=== PATIENT | female | born 1985 ===

== ENCOUNTER 2020-11-26 22:03 | Emergency (ER) | payer OTHER ==
[~2020-11-26] VITALS: Ht 162.6 cm; Wt 51.7 kg
[2020-11-26] MEDS ORDERED: LEVOTHYROXINE25 MCG (22:28)
[2020-11-26] MEDS ORDERED: PROAIR HFA8.5 GM (22:29)
[2020-11-26] MEDS ORDERED: ALL DAY ALLERGY10 M3 (22:29)
[2020-11-26] MEDS ORDERED: MONTELUKAST SODI4 M1 (22:29)
[2020-11-27] MEDS ORDERED: ZOFRAN8 MG PO (09:14)
== END 2020-11-27 10:01 | disposition home or self-care (01) ==
LOC: ER 22:03
DX: R11.10 Vomiting, unspecified (principal); Z33.1 Pregnant state, incidental; Z03.818 Encounter for observation for suspected exposure to other biological agents ruled out

== ENCOUNTER 2020-12-03 13:48 | Emergency (ER) | payer OTHER ==
[~2020-12-03] VITALS: Ht 162.6 cm; Wt 52.2 kg
[~2020-12-03 13:48] MED LIST: ALL DAY ALLERGY10 M3; LEVOTHYROXINE25 MCG; MONTELUKAST SODI4 M1; PROAIR HFA8.5 GM; ZOFRAN8 MG PO
== END 2020-12-04 10:12 | disposition home or self-care (01) ==
LOC: ER 13:48
DX: O26.891 Other specified pregnancy related conditions, first trimester (principal); O21.0 Mild hyperemesis gravidarum; Z3A.12 12 weeks gestation of pregnancy; R10.2 Pelvic and perineal pain

== ENCOUNTER 2020-12-05 10:44 | Outpatient (CLI) | payer OTHER | END 2020-12-05 11:30 | disposition home or self-care (01) | LOC: PRENATAL 10:44 | PROVIDERS: ATTEND Obstetrics & Gynecology Maternal & Fetal Medicine | DX: O21.0 Mild hyperemesis gravidarum (principal); O99.891 Other specified diseases and conditions complicating pregnancy; O36.80X1 Pregnancy with inconclusive fetal viability, fetus 1; Z36.89 Encounter for other specified antenatal screening; Z3A.13 13 weeks gestation of pregnancy ==